=== PATIENT | female | born 1965 | race Caucasian/White ===

== ENCOUNTER → 2017-03-08 | Outpatient (CLI) | payer BC ==
[~2017-03-08] MED LIST: ACETAMINOPHEN-O1 TAB PO; AMITRIPTYLINE50 MG PO; AMOXICILLIN500 MG PO; AVELOX400 MG PO; CITALOPRAM20 MG PO; CLARITIN10 MG PO; CLINDAMYCIN HC300 MG PO; CYMBALTA30 MG PO; CYMBALTA60 MG PO; DICYCLOMINE10 MG PO; FLEXERIL10 MG PO; FLEXERIL5 MG PO; GABAPENTIN300 MG PO; IBU800 MG PO; LODINE XL 400M400 MG PO; LYRICA100 M1 PO; LYRICA50 M1 PO; MEDROL DOSEPAK4 MG PO; MELOXICAM15 MG PO; MOTRIN800 MG PO; PRISTIQ50 MG PO; ROBAXIN750 MG PO; TRAMADOL HCL50 MG PO; ULTRAM50 MG PO; XANAX0.5 MG PO; ZANTAC 150150 MG PO; ZYRTEC-D 12HR 51 TER PO
== END | disposition home or self-care (01) ==
LOC: LAB 21:08
DX: M85.30 Osteitis condensans, unspecified site (principal); M53.3 Sacrococcygeal disorders, not elsewhere classified; I10 Essential (primary) hypertension; M79.7 Fibromyalgia; Z72.0 Tobacco use

== ENCOUNTER → 2017-03-09 | Outpatient (CLI) | payer BC ==
[2017-03-09 13:26] LABS: BASO # 0.1 10*3/uL (0.0-0.1); BASO % 0.9 % (0.0-1.0); EOS # 0.2 10*3/uL (0.0-0.4); EOS % 1.3 % (1.0-4.0); HEMOGLOBIN 16.7 g/dl (12.0-16.0); LYMPH # 2.6 10*3/uL (1.3-4.4); LYMPH % 21.4 % (27.0-41.0); MEAN CELL VOLUME 87.3 fl (81.0-99.0); MEAN CORPUSCULAR HGB 29.8 pg (27.0-31.0); MEAN CORPUSCULAR HGB CONC 34.1 g/dl (33.0-37.0); MEAN PLATELET VOLUME 9.3 fl (9.6-12.3); MONO # 0.7 10*3/uL (0.1-1.0); MONO % 5.6 % (3.0-9.0); NEUT # 8.6 10*3/uL (2.3-7.9); NEUT % 70.6 % (47.0-73.0); PLATELET COUNT AUTOMATED 327 10*3/uL (130-400); RED BLOOD COUNT 5.61 10*6/uL (4.10-5.10); RED CELL DISTRI WIDTH 12.7 % (0-14.5); WHITE BLOOD COUNT 12.1 10*3/uL (4.8-10.8)
[2017-03-09 13:57] LABS: ALBUMIN 3.8 gm/dl (3.1-4.5); ALKALINE PHOSPHATASE 145 U/L (45-117); BILIRUBIN, TOTAL 0.5 mg/dl (0.2-1.0); BUN 22 mg/dl (7-24); CARBON DIOXIDE 25 mmol/L (21-32); CHLORIDE 102 mmol/L (98-107); CHOLESTEROL 188 mg/dL (<200); EST GLOM FILT AFRICAN AMERICAN > 60 ml/min; GLUCOSE 100 mg/dL (65-99); HDL CHOLESTEROL 38 mg/dl (40-60); LDL CHOLESTEROL 103 mg/dL (9-159); POTASSIUM 4.2 mmol/L (3.5-5.1); SGOT/AST 15 IU/L (3-35); SGPT/ALT 7 U/L (12-78); SODIUM 139 mmol/L (136-145); TOTAL PROTEIN 7.7 gm/dL (6.4-8.2); TRIGLYCERIDES 236 mg/dl (<150); VLDL CHOLESTEROL 47 mg/dL (6-40)
== END | disposition home or self-care (01) ==
LOC: LAB 13:03
PROVIDERS: Family Medicine
DX: I10 Essential (primary) hypertension (principal); M79.7 Fibromyalgia; M53.3 Sacrococcygeal disorders, not elsewhere classified; Z72.0 Tobacco use

== ENCOUNTER 2017-04-13 12:21 | Emergency (ER) | payer BC ==
[2017-04-13 12:26] VITALS: BP 120/80
[2017-04-13] MEDS ORDERED: LISINOPRIL-HYDR1 TA3 PO (12:30)
[2017-04-13] MEDS ORDERED: NAPROSYN500 MG PO (14:21)
[2017-04-13] MEDS ORDERED: KEFLEX500 M1 PO (14:21)
== END 2017-04-13 14:15 | disposition home or self-care (01) ==
LOC: ED 12:21
DX: S02.2XXA Fracture of nasal bones, initial encounter for closed fracture (principal); S01.81XA Laceration without foreign body of other part of head, initial encounter; G89.29 Other chronic pain; M54.2 Cervicalgia; F32.9 Major depressive disorder, single episode, unspecified; F17.200 Nicotine dependence, unspecified, uncomplicated; Z90.49 Acquired absence of other specified parts of digestive tract; Z98.890 Other specified postprocedural states; Z90.711 Acquired absence of uterus with remaining cervical stump; V80.010A Animal-rider injured by fall from or being thrown from horse in noncollision accident, initial encounter; Y93.52 Activity, horseback riding; Y92.89 Other specified places as the place of occurrence of the external cause; Y99.9 Unspecified external cause status

== ENCOUNTER 2017-07-22 23:46 | Emergency (ER) | payer BC ==
[~2017-07-22] VITALS: Ht 160 cm; Wt 83.9 kg
[~2017-07-22 23:46] MED LIST changes: +KEFLEX500 M1 PO; +LISINOPRIL-HYDR1 TA3 PO; +NAPROSYN500 MG PO
[2017-07-22 23:56] VITALS: BP 127/90
[2017-07-23 00:50] LABS: BASO # 0.1 10*3/uL (0.0-0.1); BASO % 0.7 % (0.0-1.0); EOS # 0.2 10*3/uL (0.0-0.4); EOS % 1.6 % (1.0-4.0); HEMATOCRIT 42.5 % (37.0-47.0); HEMOGLOBIN 14.7 g/dl (12.0-16.0); LYMPH # 2.9 10*3/uL (1.3-4.4); LYMPH % 24.4 % (27.0-41.0); MEAN CELL VOLUME 87.4 fl (81.0-99.0); MEAN CORPUSCULAR HGB 30.2 pg (27.0-31.0); MEAN CORPUSCULAR HGB CONC 34.6 g/dl (33.0-37.0); MEAN PLATELET VOLUME 9.3 fl (9.6-12.3); MONO # 0.8 10*3/uL (0.1-1.0); NEUT # 7.8 10*3/uL (2.3-7.9); PLATELET COUNT AUTOMATED 298 10*3/uL (130-400); RED BLOOD COUNT 4.86 10*6/uL (4.10-5.10); RED CELL DISTRI WIDTH 12.5 % (0-14.5); WHITE BLOOD COUNT 11.8 10*3/uL (4.8-10.8)
[2017-07-23 00:59] LABS: INTERNATIONAL NORM RATIO 0.9 (2.0-3.5)
[2017-07-23 01:05] LABS: ALKALINE PHOSPHATASE 189 U/L (45-117); BUN 10 mg/dl (7-24); CHLORIDE 102 mmol/L (98-107); CREATININE 0.77 mg/dL (0.55-1.02); POTASSIUM 3.4 mmol/L (3.5-5.1); SGOT/AST 18 IU/L (3-35); SGPT/ALT 14 U/L (12-78); SODIUM 137 mmol/L (136-145); TOTAL PROTEIN 6.8 gm/dL (6.4-8.2)
[2017-07-23] MEDS ORDERED: CEPHALEXIN500 M1 PO (01:20)
== END 2017-07-23 02:27 | disposition home or self-care (01) ==
LOC: ED 23:46
PROVIDERS: Nurse Practitioner Family
DX: L03.119 Cellulitis of unspecified part of limb (principal); R21 Rash and other nonspecific skin eruption; F17.200 Nicotine dependence, unspecified, uncomplicated; Z79.899 Other long term (current) drug therapy

== ENCOUNTER 2018-02-16 19:32 | Emergency (ER) | payer BC ==
[~2018-02-16] VITALS: Ht 160 cm; Wt 88.5 kg
[~2018-02-16 19:32] MED LIST changes: +CEPHALEXIN500 M1 PO
[2018-02-16] MEDS ORDERED: Percocet 325 MG1 TAB PO (19:42)
[2018-02-16] MEDS ORDERED: OMEPRAZOLE D/R20 MG PO (19:43)
[2018-02-16] MEDS ORDERED: DOXEPIN HCL25 MG PO (19:43)
[2018-02-16] MEDS ORDERED: PROAIR HFA8.5 GM INH (19:43)
[2018-02-16] MEDS ORDERED: DULOXETINE HCL60 MG PO (19:44)
[2018-02-16] MEDS ORDERED: TRIAMCINOLONE A15 GM T (19:45)
[2018-02-16] MEDS ORDERED: BACLOFEN20 M1 PO (19:45)
[2018-02-16] MEDS ORDERED: VITAMIN D50000 UNIT PO (19:47)
[2018-02-16 20:23] LABS: BASO # 0.1 10*3/uL (0.0-0.1); BASO % 0.7 % (0.0-1.0); EOS # 0.2 10*3/uL (0.0-0.4); EOS % 1.7 % (1.0-4.0); HEMATOCRIT 39.4 % (37.0-47.0); HEMOGLOBIN 13.3 g/dl (12.0-16.0); LYMPH # 2.4 10*3/uL (1.3-4.4); LYMPH % 26.5 % (27.0-41.0); MEAN CELL VOLUME 88.7 fl (81.0-99.0); MEAN CORPUSCULAR HGB CONC 33.8 g/dl (33.0-37.0); MEAN PLATELET VOLUME 9.3 fl (9.6-12.3); MONO # 0.5 10*3/uL (0.1-1.0); MONO % 5.9 % (3.0-9.0); NEUT # 5.8 10*3/uL (2.3-7.9); PLATELET COUNT AUTOMATED 217 10*3/uL (130-400); RED BLOOD COUNT 4.44 10*6/uL (4.10-5.10); RED CELL DISTRI WIDTH 13.7 % (0-14.5); WHITE BLOOD COUNT 8.9 10*3/uL (4.8-10.8)
[2018-02-16 20:41] LABS: ALBUMIN 3.2 gm/dl (3.1-4.5); ALKALINE PHOSPHATASE 123 U/L (45-117); BUN 8 mg/dl (7-24); CHLORIDE 102 mmol/L (98-107); CREATININE 0.67 mg/dL (0.55-1.02); POTASSIUM 3.7 mmol/L (3.5-5.1); SGOT/AST 16 IU/L (3-35); SGPT/ALT 11 U/L (12-78); SODIUM 139 mmol/L (136-145); TOTAL PROTEIN 6.4 gm/dL (6.4-8.2)
[2018-02-16 20:42] LABS: TROPONIN I < 0.015 ng/ml (<0.045)
[2018-02-16 20:48] LABS: BILIRUBIN NEGATIVE (NEGATIVE); BLOOD NEGATIVE (NEGATIVE); CLARITY SL CLOUDY (CLEAR); COLOR YELLOW (YELLOW); GLUCOSE NEGATIVE (NEGATIVE); KETONE NEGATIVE (NEGATIVE); LEUKO ESTERASE NEGATIVE (NEGATIVE); NITRITE NEGATIVE (NEGATIVE); PH 5.5 (5.0-9.0); SPECIFIC GRAVITY 1.025 (1.005-1.030); UROBILINOGEN 0.2 E.U./dl (0.2-1.0)
[2018-02-16 21:14] LABS: BACTERIA 1+; EPITHELIAL CELLS TNTC
[2018-02-16 21:25] VITALS: BP 148/83
== END 2018-02-16 23:37 | disposition home or self-care (01) ==
LOC: ED 19:32
PROVIDERS: Physician Assistant
DX: R60.0 Localized edema (principal); F17.200 Nicotine dependence, unspecified, uncomplicated; Z90.49 Acquired absence of other specified parts of digestive tract; Z98.890 Other specified postprocedural states; Z79.899 Other long term (current) drug therapy

== ENCOUNTER → 2019-06-10 | Outpatient (CLI) | payer BC ==
[~2019-06-10] MED LIST changes: +BACLOFEN20 M1 PO; +DOXEPIN HCL25 MG PO; +DULOXETINE HCL60 MG PO; +OMEPRAZOLE D/R20 MG PO; +PROAIR HFA8.5 GM INH; +Percocet 325 MG1 TAB PO; +TRIAMCINOLONE A15 GM T; +VITAMIN D50000 UNIT PO
--- NOTE | ~2019-06-10 | EKG ---
[place], [place] ELECTROCARDIOGRAM REPORT NAME: ABDULAZIZ BARNEY UNIT #: [id number] ROOM: DOCTOR: LILO DRAFT REPORT BIRTHDATE: [birth year] [facility] [place] Test Date: 2019-06-10 Test Time: 16:08:13 Pat Name: ABDULAZIZ BARNEY Department: Room: Gender: F Staff Development Educator: CAITY WYMAN : 1965 Requested By: RODOLFO CABRERA Order Number: [id number] Reading MD: Sonia Sainz MD Measurements Intervals [place] Rate: 65 P: 64 GA: 166 QRS: 26 QRSD: 91 T: 30 QT: 403 QTc: 419 Interpretive Statements Sinus rhythm Abnormal R-wave progression, early transition Baseline wander in lead(s) V4,V5 No previous ECG available for comparison Electronically Signed On 06-11-2019 12:28:34 PDT by Sonia Sainz MD CM:EKGRPT:ELECTROCARDIOGRAM REPORT [id number] RODOLFO NAGY DRAFT REPORT RODOLFO CABRERA
== END | disposition home or self-care (01) ==
LOC: CARD 15:55
DX: R55 Syncope and collapse (principal)

== ENCOUNTER → 2019-06-14 | Outpatient (CLI) | payer BC ==
[2019-06-14 08:58] LABS: HEMATOCRIT 45.4 % (37.0-47.0); HEMOGLOBIN 15.5 g/dl (12.0-16.0); MEAN CELL VOLUME 86.6 fl (81.0-99.0); MEAN CORPUSCULAR HGB 29.6 pg (27.0-31.0); MEAN CORPUSCULAR HGB CONC 34.1 g/dl (33.0-37.0); MEAN PLATELET VOLUME 9.7 fl (9.6-12.3); RED BLOOD COUNT 5.24 10*6/uL (4.10-5.10); RED CELL DISTRI WIDTH 12.4 % (0-14.5); WHITE BLOOD COUNT 11.3 10*3/uL (4.8-10.8)
[2019-06-14 09:06] LABS: ALBUMIN 3.7 gm/dl (3.1-4.5); ALKALINE PHOSPHATASE 199 U/L (45-117); BUN 26 mg/dl (7-24); CHLORIDE 105 mmol/L (98-107); CHOLESTEROL 179 mg/dL (<200); CREATININE 0.97 mg/dL (0.55-1.02); HDL CHOLESTEROL 31 mg/dl (40-60); LDL CHOLESTEROL 118 mg/dL (9-159); POTASSIUM 3.5 mmol/L (3.5-5.1); SGOT/AST 9 IU/L (3-35); SGPT/ALT 14 U/L (12-78); SODIUM 137 mmol/L (136-145); TOTAL PROTEIN 7.7 gm/dL (6.4-8.2); TRIGLYCERIDES 151 mg/dl (<150); VLDL CHOLESTEROL 30 mg/dL (6-40)
== END | disposition home or self-care (01) ==
LOC: LAB 08:18
PROVIDERS: Registered Nurse Flight
DX: R55 Syncope and collapse (principal)

== ENCOUNTER 2019-06-18 10:04 | Emergency (ER) | payer BC ==
[~2019-06-18] VITALS: Ht 160 cm; Wt 78.0 kg
[2019-06-18 10:39] LABS: BILIRUBIN NEGATIVE (NEGATIVE); BLOOD NEGATIVE (NEGATIVE); CLARITY CLEAR (CLEAR); COLOR YELLOW (YELLOW); GLUCOSE NEGATIVE (NEGATIVE); KETONE NEGATIVE (NEGATIVE); LEUKO ESTERASE NEGATIVE (NEGATIVE); NITRITE NEGATIVE (NEGATIVE); PH 5.5 (5.0-9.0); UROBILINOGEN 0.2 E.U./dl (0.2-1.0)
[2019-06-18 10:51] LABS: BASO # 0.1 10*3/uL (0.0-0.1); BASO % 0.7 % (0.0-1.0); EOS # 0.1 10*3/uL (0.0-0.4); EOS % 1.2 % (1.0-4.0); HEMATOCRIT 42.7 % (37.0-47.0); LYMPH # 2.9 10*3/uL (1.3-4.4); LYMPH % 25.5 % (27.0-41.0); MEAN CELL VOLUME 85.9 fl (81.0-99.0); MEAN CORPUSCULAR HGB 30.2 pg (27.0-31.0); MEAN CORPUSCULAR HGB CONC 35.1 g/dl (33.0-37.0); MONO # 0.7 10*3/uL (0.1-1.0); MONO % 5.8 % (3.0-9.0); NEUT # 7.6 10*3/uL (2.3-7.9); NEUT % 66.5 % (47.0-73.0); PLATELET COUNT AUTOMATED 447 10*3/uL (130-400); RED BLOOD COUNT 4.97 10*6/uL (4.10-5.10); RED CELL DISTRI WIDTH 12.6 % (0-14.5); WHITE BLOOD COUNT 11.4 10*3/uL (4.8-10.8)
[2019-06-18 10:59] LABS: RBC 0-2 rbc/hpf (0-2)
[2019-06-18 11:00] LABS: BACTERIA 1+; EPITHELIAL CELLS 20-30
[2019-06-18 12:30] VITALS: BP 130/74
[2019-06-18 14:37] LABS: ALBUMIN 3.2 gm/dl (3.1-4.5); ALKALINE PHOSPHATASE 175 U/L (45-117); BUN 24 mg/dl (7-24); CHLORIDE 106 mmol/L (98-107); CREATININE 0.94 mg/dL (0.55-1.02); LIPASE 123 U/L (73-393); POTASSIUM 3.4 mmol/L (3.5-5.1); SGOT/AST 4 IU/L (3-35); SGPT/ALT 10 U/L (12-78); SODIUM 137 mmol/L (136-145); TOTAL PROTEIN 6.7 gm/dL (6.4-8.2)
[2019-06-18 16:01] LABS: URINE AMPHETAMINES < 1000 (1000ng/ml); URINE BARBITURATES < 200 (200ng/ml); URINE BENZODIAZEPINES > 200 (200ng/ml); URINE CANNABINOIDS (THC) < 50 (50ng/ml); URINE COCAINE < 300 (300ng/ml); URINE METHADONE < 300 (300ng/ml); URINE OPIATES < 300 (300ng/ml)
[2019-06-18 16:03] LABS: URINE PHENCYCLIDINE < 25 (25ng/ml)
== END 2019-06-18 15:32 | disposition home or self-care (01) ==
LOC: ED 10:04
PROVIDERS: Physician Assistant
DX: R10.31 Right lower quadrant pain (principal); R42 Dizziness and giddiness; R19.7 Diarrhea, unspecified; R11.0 Nausea; F17.200 Nicotine dependence, unspecified, uncomplicated; Z79.899 Other long term (current) drug therapy; Z90.710 Acquired absence of both cervix and uterus; Z90.49 Acquired absence of other specified parts of digestive tract

== ENCOUNTER → 2021-02-08 | Outpatient (CLI) | payer BC | END | disposition home or self-care (01) | LOC: MAMMO 00:40 | PROVIDERS: ATTEND Family Medicine | DX: Z12.31 Encounter for screening mammogram for malignant neoplasm of breast (principal); N64.89 Other specified disorders of breast ==

== ENCOUNTER → 2021-03-02 | Outpatient (CLI) | payer BC | END | disposition home or self-care (01) | LOC: MAMMO 13:07 | PROVIDERS: ATTEND Family Medicine | DX: N60.01 Solitary cyst of right breast (principal); R92.8 Other abnormal and inconclusive findings on diagnostic imaging of breast ==

== ENCOUNTER → 2021-03-09 | Outpatient (CLI) | payer BC | END | disposition home or self-care (01) | LOC: RAD 14:30 | PROVIDERS: ATTEND Family Medicine | DX: M25.562 Pain in left knee (principal) ==

== ENCOUNTER 2021-07-01 19:13 | Emergency (ER) | payer BC ==
[~2021-07-01] VITALS: Ht 157.4 cm; Wt 81.6 kg
[2021-07-01 19:25] VITALS: BP 118/69
[2021-07-01] MEDS ORDERED: FLONASE ALLERG9.9 ML NAS (19:52)
[2021-07-01] MEDS ORDERED: AUGMENTIN 875-875 MG PO (19:52)
[2021-07-01] MEDS ORDERED: DIFLUCAN150 MG PO (22:22)
== END 2021-07-01 19:54 | disposition home or self-care (01) ==
LOC: ED 19:13
DX: J01.90 Acute sinusitis, unspecified (principal); F17.200 Nicotine dependence, unspecified, uncomplicated; Z79.899 Other long term (current) drug therapy

== ENCOUNTER 2021-07-15 16:49 | Emergency (ER) | payer BC ==
[~2021-07-15] VITALS: Wt 83.0 kg
[~2021-07-15 16:49] MED LIST changes: +AUGMENTIN 875-875 MG PO; +DIFLUCAN150 MG PO; +FLONASE ALLERG9.9 ML NAS
[2021-07-15 16:58] VITALS: BP 116/67
[2021-07-15 17:58] LABS: BILIRUBIN Negative (Negative); BLOOD Negative (Negative); CLARITY Clear (Clear); COLOR Yellow (Yellow); GLUCOSE Negative (Negative); KETONE Negative (Negative); LEUKO ESTERASE Negative (Negative); NITRITE Negative (Negative); UROBILINOGEN 0.2 E.U./dl (0.0-1.0)
[2021-07-15 18:05] LABS: BACTERIA 2+; RBC 0-2 rbc/hpf (0-2); WBC 0-2 wbc/hpf (0-5)
[2021-07-15] MEDS ORDERED: SEPTDS PO (18:15)
== END 2021-07-15 18:36 | disposition home or self-care (01) ==
LOC: ED 16:49
PROVIDERS: Physician Assistant
DX: J32.9 Chronic sinusitis, unspecified (principal); R30.0 Dysuria; F17.200 Nicotine dependence, unspecified, uncomplicated; Z88.8 Allergy status to other drugs, medicaments and biological substances; Z79.899 Other long term (current) drug therapy

== ENCOUNTER → 2021-09-08 | Outpatient (CLI) | payer BC ==
[~2021-09-08] MED LIST changes: +SEPTDS PO
== END | disposition home or self-care (01) ==
LOC: RAD 09:58
PROVIDERS: ATTEND Nurse Practitioner Family
DX: M54.42 Lumbago with sciatica, left side (principal); M54.41 Lumbago with sciatica, right side; M54.2 Cervicalgia; Z98.1 Arthrodesis status

== ENCOUNTER → 2021-10-05 | Day surgery (SDC) | payer BC ==
[~2021-10-05] VITALS: Ht 160 cm; Wt 84.9 kg
[~2021-10-05] MED LIST changes: +CELEBREX50 MG PO; +HYDR12.5C PO; +MELATONIN1 MG PO; +POTASSIUM600 MG PO; +VITAMIN C250 M2 PO; +ZINC50 M4 PO
[2021-10-05 10:23] VITALS: BP 120/63
[2021-10-05 12:36] VITALS: BP 106/70
[2021-10-05 12:41] VITALS: BP 111/77
[2021-10-05 12:56] VITALS: BP 117/67
[2021-10-05 13:31] VITALS: BP 106/70
== END | disposition home or self-care (01) ==
LOC: SDC 10-02 11:00
PROVIDERS: ATTEND Surgery
DX: Z12.11 Encounter for screening for malignant neoplasm of colon (principal); K57.30 Diverticulosis of large intestine without perforation or abscess without bleeding; K29.70 Gastritis, unspecified, without bleeding; Z86.010 Personal history of colon polyps; K21.9 Gastro-esophageal reflux disease without esophagitis; F32.9 Major depressive disorder, single episode, unspecified; F41.9 Anxiety disorder, unspecified; M19.90 Unspecified osteoarthritis, unspecified site; Z90.49 Acquired absence of other specified parts of digestive tract; Z90.710 Acquired absence of both cervix and uterus; Z79.899 Other long term (current) drug therapy; Z85.828 Personal history of other malignant neoplasm of skin; Z20.822 Contact with and (suspected) exposure to COVID-19

== ENCOUNTER → 2021-12-29 | Outpatient (CLI) | payer BC | END | disposition home or self-care (01) | LOC: CT 15:54 | PROVIDERS: ATTEND Nurse Practitioner Family | DX: G44.52 New daily persistent headache (NDPH) (principal) ==

== ENCOUNTER 2022-04-04 09:18 | Emergency (ER) | payer BC ==
[2022-04-04 09:21] VITALS: BP 165/65
== END 2022-04-04 11:35 | disposition home or self-care (01) ==
LOC: ED 09:18
DX: J18.8 Other pneumonia, unspecified organism (principal); Z77.098 Contact with and (suspected) exposure to other hazardous, chiefly nonmedicinal, chemicals

== ENCOUNTER → 2022-06-25 | Outpatient (CLI) | payer BC | END | disposition home or self-care (01) | LOC: RAD 12:39 | PROVIDERS: ATTEND Nurse Practitioner Family | DX: R30.0 Dysuria (principal); R11.0 Nausea; M54.9 Dorsalgia, unspecified ==

== ENCOUNTER → 2022-07-05 | Outpatient (CLI) | payer BC | END | disposition home or self-care (01) | LOC: CT 13:54 | PROVIDERS: ATTEND Nurse Practitioner Family | DX: K76.0 Fatty (change of) liver, not elsewhere classified (principal) ==

== ENCOUNTER → 2022-08-17 | Day surgery (SDC) | payer BC ==
[~2022-08-17] VITALS: Ht 160 cm; Wt 84.8 kg
[~2022-08-17] MED LIST changes: +CARAFATE1 G1 PO; +PROTONIX40 MG PO
[2022-08-17 08:54] VITALS: BP 111/44
[2022-08-17 09:25] VITALS: BP 109/55
[2022-08-17 09:40] VITALS: BP 111/65
[2022-08-17 09:53] VITALS: BP 125/65
[2022-08-17 11:43] VITALS: BP 125/65
== END | disposition home or self-care (01) ==
LOC: SDC 08-14 09:30
PROVIDERS: ATTEND Surgery
DX: K21.9 Gastro-esophageal reflux disease without esophagitis (principal); K29.50 Unspecified chronic gastritis without bleeding; K25.9 Gastric ulcer, unspecified as acute or chronic, without hemorrhage or perforation; F41.9 Anxiety disorder, unspecified; F32.9 Major depressive disorder, single episode, unspecified; I10 Essential (primary) hypertension; Z79.899 Other long term (current) drug therapy

== ENCOUNTER → 2022-10-22 | Outpatient (CLI) | payer BC | END | disposition home or self-care (01) | LOC: RAD 15:18 | PROVIDERS: ATTEND Family Medicine | DX: M48.061 Spinal stenosis, lumbar region without neurogenic claudication (principal); M43.16 Spondylolisthesis, lumbar region; Z90.49 Acquired absence of other specified parts of digestive tract ==

== ENCOUNTER 2023-06-04 12:00 | Emergency (ER) | payer BC | END 2023-06-04 13:01 | disposition left against medical advice (07) | LOC: ED 12:00 | DX: M54.9 Dorsalgia, unspecified (principal); Z53.21 Procedure and treatment not carried out due to patient leaving prior to being seen by health care provider ==

== ENCOUNTER → 2023-12-11 | Outpatient (CLI) | payer BC | END | disposition home or self-care (01) | LOC: LAB 15:36 | PROVIDERS: ATTEND Nurse Practitioner | DX: Z51.81 Encounter for therapeutic drug level monitoring (principal); F31.32 Bipolar disorder, current episode depressed, moderate ==

== ENCOUNTER → 2024-01-28 | Outpatient (CLI) | payer BC | END | disposition home or self-care (01) | LOC: RAD 15:35 | PROVIDERS: ATTEND Physician Assistant | DX: M25.561 Pain in right knee (principal); M25.562 Pain in left knee ==

== ENCOUNTER 2024-04-08 11:50 | Emergency (ER) | payer BC ==
[~2024-04-08] VITALS: Ht 160 cm; Wt 90.7 kg
[2024-04-08 14:36] VITALS: BP 118/74
== END 2024-04-08 15:35 | disposition home or self-care (01) ==
LOC: ED 11:50
DX: S16.1XXA Strain of muscle, fascia and tendon at neck level, initial encounter (principal); F17.200 Nicotine dependence, unspecified, uncomplicated; R51.9 Headache, unspecified; Z90.49 Acquired absence of other specified parts of digestive tract; Z90.711 Acquired absence of uterus with remaining cervical stump; Z98.890 Other specified postprocedural states; Z79.2 Long term (current) use of antibiotics; Z79.899 Other long term (current) drug therapy; W18.39XA Other fall on same level, initial encounter; Y93.89 Activity, other specified; Y92.238 Other place in hospital as the place of occurrence of the external cause; Y99.8 Other external cause status

== ENCOUNTER 2024-04-19 14:38 | Emergency (ER) | payer BC ==
[~2024-04-19] VITALS: Ht 162.5 cm; Wt 90.7 kg
[2024-04-19 14:50] VITALS: BP 137/111
[2024-04-19] MEDS ORDERED: Gelatin Sponge 1 EACH SPON T ONE (15:05)
[2024-04-19] MEDS ORDERED: CEPHALEXIN 500 MG CAP PO ONE (15:05)
[2024-04-19] MEDS ORDERED: CEPHALEXIN500 M1 PO ×2 (15:07→15:22)
== END 2024-04-19 15:23 | disposition home or self-care (01) ==
LOC: ED 14:38
DX: S61.212A Laceration without foreign body of right middle finger without damage to nail, initial encounter (principal); S61.214A Laceration without foreign body of right ring finger without damage to nail, initial encounter; F41.9 Anxiety disorder, unspecified; F32.A Depression, unspecified; I10 Essential (primary) hypertension; K21.9 Gastro-esophageal reflux disease without esophagitis; Z98.890 Other specified postprocedural states; Z90.49 Acquired absence of other specified parts of digestive tract; Z90.711 Acquired absence of uterus with remaining cervical stump; Z72.0 Tobacco use; W26.8XXA Contact with other sharp object(s), not elsewhere classified, initial encounter; Y93.89 Activity, other specified; Y92.89 Other specified places as the place of occurrence of the external cause; Y99.8 Other external cause status

== ENCOUNTER → 2024-09-30 | Outpatient (CLI) | payer BC | END | disposition home or self-care (01) | LOC: MAMMO 09:55 | PROVIDERS: ATTEND Nurse Practitioner | DX: Z12.31 Encounter for screening mammogram for malignant neoplasm of breast (principal); R92.323 Mammographic fibroglandular density, bilateral breasts ==